=== PATIENT | male | born 2000 | race African-American/Black ===

== ENCOUNTER 2021-07-08 05:31 | Emergency (ER) | payer MEDICAID ==
[~2021-07-08] VITALS: Ht 180.3 cm; Wt 61.2 kg
[2021-07-08 05:51] VITALS: BP 138/73
--- NOTE | 2021-07-08 06:00 | NUR ---
TO BED AMBULATORY
--- NOTE | 2021-07-08 06:12 | NUR ---
Dr. Gray examining patient.
[2021-07-08] MEDS ORDERED: ALUMINUM HYD/MAG/SIMETHICONE 30 ML UDC PO ONE (06:25)
[2021-07-08] MEDS ORDERED: METOCLOPRAMIDE 10 MG/2 ML INJ VIAL IM ONE (06:25)
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
--- NOTE | 2021-07-08 06:50 | NUR ---
COVID SWAB COLLECTED FROM PT NARES AND SENT TO LAB.
--- NOTE | 2021-07-08 07:18 | NUR ---
Pt report given to VELIA KING. Transfer of care at this time.
--- NOTE | 2021-07-08 07:27 | NUR ---
ASSUMED PATIENT CARE 20 YEARS OLD MALE WALKING TO ER C/O HEADACHE, REPORT EXPOSED TO COVID 19, NO SOB NO CP, NO COUGH DENIES NAUSEA VOMITING AFEBRILE.
[2021-07-08] MEDS ORDERED: FLONAS NS (07:33)
[2021-07-08 07:36] LABS: BASOPHILS % (AUTO) 0.5 % (0.0-2.0); EOSINOPHILS # (AUTO) 0.5 K/uL (0-0.4); EOSINOPHILS % (AUTO) 8.7 % (0.0-4.0); HEMATOCRIT 42.7 % (36-52); HEMOGLOBIN 14.4 g/dL (12.0-18.0); LYMPHOCYTES # (AUTO) 2.5 K/uL (2.0-11.5); LYMPHOCYTES % (AUTO) 45.6 % (20.5-51.1); MEAN CORPUSCULAR HEMOGLOBIN 27 pg (27-31); MEAN CORPUSCULAR HGB CONC 34 g/dL (33-37); MONOCYTES # (AUTO) 0.4 K/uL (0.8-1.0); NEUTROPHILS # (AUTO) 2.1 K/uL (1.8-7.7); NEUTROPHILS % (AUTO) 38.2 % (42.2-75.2); PLATELET COUNT (AUTO) 179 K/uL (140-450); RED CELL DISTRIBUTION WIDTH 12.9 % (11.6-13.7); WHITE BLOOD COUNT (AUTO) 5.4 K/uL (4.5-11.0)
[2021-07-08 08:39] LABS: ANION GAP 10.2 (8-16); CARBON DIOXIDE 31.5 mmol/L (21-32); CREATININE 0.9 mg/dL (0.6-1.3); POTASSIUM 3.7 mmol/L (3.5-5.1)
[2021-07-08 08:42] LABS: ALBUMIN 4.3 g/dL (3.4-5.0); BILIRUBIN,DIRECT 0.1 mg/dL (0.0-0.3); TOTAL BILIRUBIN 0.4 mg/dL (0.0-1.0)
[2021-07-08 09:15] VITALS: BP 118/70
--- NOTE | 2021-07-08 09:17 | NUR ---
PATIENT CONDITION STABLE D/C HOME WITH INSTRUCTIONS AFTER CARE REVIEWED UNDERSTOOD LEFT ER ALERT, AMBULATORY WITH STEADY GAIT NO COUGH HEADACHE FEVER, RUNNY NOSE.
== END 2021-07-08 09:17 | disposition home or self-care (01) ==
LOC: MED 05:31
DX: R51.9 Headache, unspecified (principal); R10.9 Unspecified abdominal pain; J45.909 Unspecified asthma, uncomplicated; Z20.822 Contact with and (suspected) exposure to COVID-19
CPT/HCPCS: 36415; 80048; 80076; 83690; 85025; 87426; 96372; 99283; J2765

== ENCOUNTER 2021-09-03 13:42 | Emergency (ER) | payer MEDICAID ==
[~2021-09-03] VITALS: Ht 180.3 cm; Wt 64.4 kg
[~2021-09-03 13:42] MED LIST: FLONAS NS
[2021-09-03 13:44] VITALS: BP 129/59
--- NOTE | 2021-09-03 13:56 | NUR ---
PATIENT CAME WITH C/C LLQ PAIN, STATES, "IT STARTED HURTING ABOUT 2-3 HOURS AGO". NO ACUTE DISTRESS AND OR DISCOMFORT NOTED. AREA ASSESSED, NO PAIN, NO SWELLING TO AREA NOTED. PATIENT AOX4, PLACED ONTO GURNEY AND VITALS OBTAINED.
--- NOTE | 2021-09-03 14:23 | NUR ---
MD AT BEDSIDE ASSESSING PATIENT.
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
[2021-09-03] MEDS ORDERED: KETOROLAC 60 MG/2 ML VIAL IM ONE (14:35)
[2021-09-03] MEDS ORDERED: ONDANSETRON 4 MG ODT PO ONE (14:35)
[2021-09-03] MEDS ORDERED: IBUP-2213 PO (15:01)
[2021-09-03] MEDS ORDERED: ONDA8TAB87 PO (15:01)
--- NOTE | 2021-09-03 15:20 | NUR ---
Note lucienolga in EDM - 09/03/21 at 1548 by REY Patient discharged with v/s stable. Written and verbal after care instructions given on nausea and abdominal pain and explained. Patient alert, oriented and verbalized understanding of instructions. Ambulatory with steady gait. All questions addressed prior to discharge. ID band removed. Patient advised to follow up with PMD. Rx of Ibuprofen and Ondansetron given. Patient educated on indication of medications including possible reaction and side effects. Opportunity to ask questions provided and answered.
--- NOTE | 2021-09-03 15:20 | NUR ---
Patient discharged with v/s stable. Written and verbal after care instructions given on nausea and abdominal pain and explained. Patient alert, oriented and verbalized understanding of instructions. Ambulatory with steady gait. All questions addressed prior to discharge. ID band removed. Patient advised to follow up with PMD. Rx of Ibuprofen and Ondansetron given. Opportunity to ask questions provided and answered.
--- NOTE | 2021-09-03 15:21 | NUR ---
The patient's care was reviewed and supervised by [facility] ED, RN.
[2021-09-03 15:31] VITALS: BP 118/78
== END 2021-09-03 15:21 | disposition home or self-care (01) ==
LOC: MED 13:42
DX: R10.12 Left upper quadrant pain (principal); R11.0 Nausea; J45.909 Unspecified asthma, uncomplicated; Z79.899 Other long term (current) drug therapy
CPT/HCPCS: 81002; 96372; 99283; J1885; Q0162